=== PATIENT | female | born 1975 | race Two or more races ===

== ENCOUNTER 2017-05-06 08:48 | Outpatient (CLI) | payer OTHER | END 2017-05-06 09:12 | disposition home or self-care (01) | LOC: MAMO-SONO 08:48 | DX: Z12.31 Encounter for screening mammogram for malignant neoplasm of breast (principal); N60.11 Diffuse cystic mastopathy of right breast ==

== ENCOUNTER 2018-06-30 08:29 | Outpatient (CLI) | payer OTHER | END 2018-06-30 08:31 | disposition home or self-care (01) | LOC: MAMO-SONO 08:29 | DX: N60.11 Diffuse cystic mastopathy of right breast (principal); Z12.31 Encounter for screening mammogram for malignant neoplasm of breast ==

== ENCOUNTER 2019-01-12 07:59 | Outpatient (CLI) | payer OTHER | END 2019-01-12 08:21 | disposition home or self-care (01) | LOC: MAMO-SONO 07:59 → SONOGRAMA 07:59 | DX: N60.11 Diffuse cystic mastopathy of right breast (principal) ==

== ENCOUNTER 2019-12-13 09:13 | Outpatient (CLI) | payer OTHER | END 2019-12-13 09:22 | disposition home or self-care (01) | LOC: MAMO-SONO 09:13 | PROVIDERS: ATTEND Obstetrics & Gynecology | DX: Z12.31 Encounter for screening mammogram for malignant neoplasm of breast (principal); N60.11 Diffuse cystic mastopathy of right breast ==

== ENCOUNTER 2021-07-31 08:11 | Outpatient (CLI) | payer OTHER | END 2021-07-31 08:23 | disposition home or self-care (01) | LOC: MAMO-SONO 08:11 | PROVIDERS: ATTEND Obstetrics & Gynecology | DX: N60.11 Diffuse cystic mastopathy of right breast (principal) ==

== ENCOUNTER 2022-08-29 09:08 | Outpatient (CLI) | payer OTHER | END 2022-08-29 09:21 | disposition home or self-care (01) | LOC: MAMO-SONO 09:08 | PROVIDERS: ATTEND Obstetrics & Gynecology | DX: N60.11 Diffuse cystic mastopathy of right breast (principal); R10.2 Pelvic and perineal pain ==

== ENCOUNTER 2022-09-12 11:00 | Inpatient (IN) | payer OTHER ==
[~2022-09-12] VITALS: Ht 157.5 cm; Wt 50.8 kg
[2022-09-12] MEDS ORDERED: TYLENOL325 MG PO (12:20)
[2022-09-12] MEDS ORDERED: ALLEGRA-D 24 H1 EACH PO (12:21)
[2022-09-15] MEDS ORDERED: AZELASTIN-FLUTI23 GM (08:07)
[2022-09-17] MEDS ORDERED: LEVSIN/SL0.125 MG SL (07:26)
[2022-09-17] MEDS ORDERED: OXYC1TAB9 PO (07:26)
== END 2022-09-17 12:14 | disposition home or self-care (01) | DRG 743 ==
LOC: OB/GYN 09-15 06:00 → O/R 09-15 06:00 → SURH 09-15 06:45 → OB/GYN 09-15 10:02 → SURH 09-15 11:15 → OB/GYN 09-17 12:14
PROVIDERS: ADMIT Obstetrics & Gynecology Gynecology; ATTEND Obstetrics & Gynecology Gynecology
PROC: 0UT70ZZ Resection of Bilateral Fallopian Tubes, Open Approach (ICD-10-PCS; 2022-09-15)
PROC: 0UT90ZZ Resection of Uterus, Open Approach (ICD-10-PCS; principal; 2022-09-15 06:45)
DX: D25.1 Intramural leiomyoma of uterus (principal); D25.2 Subserosal leiomyoma of uterus; D25.0 Submucous leiomyoma of uterus; Z20.822 Contact with and (suspected) exposure to COVID-19; N72 Inflammatory disease of cervix uteri

== ENCOUNTER 2023-12-21 10:05 | Outpatient (CLI) | payer OTHER ==
[~2023-12-21 10:05] MED LIST: ALLEGRA-D 24 H1 EACH PO; AZELASTIN-FLUTI23 GM; LEVSIN/SL0.125 MG SL; OXYC1TAB9 PO; TYLENOL325 MG PO
== END 2023-12-21 10:18 | disposition home or self-care (01) ==
LOC: MAMO-SONO 10:05
PROVIDERS: ATTEND Obstetrics & Gynecology
DX: N60.11 Diffuse cystic mastopathy of right breast (principal)

== ENCOUNTER 2024-01-18 09:27 | Outpatient (CLI) | payer OTHER | END 2024-01-18 09:29 | disposition home or self-care (01) | LOC: SONOGRAMA 09:27 | DX: R10.13 Epigastric pain (principal); E28.8 Other ovarian dysfunction ==

== ENCOUNTER 2025-04-10 09:22 | Outpatient (CLI) | payer OTHER | END 2025-04-10 09:26 | disposition home or self-care (01) | LOC: MAMO-SONO 09:22 | DX: N83.209 Unspecified ovarian cyst, unspecified side (principal); Z12.39 Encounter for other screening for malignant neoplasm of breast; Z12.31 Encounter for screening mammogram for malignant neoplasm of breast ==